=== PATIENT | male | born 2000 | race Caucasian/White ===

== ENCOUNTER 2021-03-27 18:12 | Emergency (ER) | payer OTHER ==
[~2021-03-27] VITALS: Ht 172.7 cm; Wt 83.9 kg
== END 2021-03-27 20:49 | disposition home or self-care (01) ==
LOC: ED 18:12
DX: S01.01XA Laceration without foreign body of scalp, initial encounter (principal); V86.59XA Driver of other special all-terrain or other off-road motor vehicle injured in nontraffic accident, initial encounter; Y93.I9 Activity, other involving external motion; Y92.488 Other paved roadways as the place of occurrence of the external cause; Y99.8 Other external cause status